=== PATIENT | female | born 1965 | race Caucasian/White ===

== ENCOUNTER 2019-04-22 09:43 | Emergency (ER) | payer OTHER, SELFPAY ==
[2019-04-22 09:44] VITALS: BP 132/76; PULSE 75; RESP 18; TEMP 36.4; O2SAT 99; BMI 25.0
--- NOTE | 2019-04-22 10:04 | CT_ITS ---
STUDY: CT ABDOMEN AND PELVIS WITHOUT CONTRAST REASON FOR EXAM: Female, 53 years old. LT FLANK PAIN, HX-KS, NO PREV SURG RADIATION DOSAGE (If Supplied By Facility): CTDIvol = ( 7.25 ) mGy, DLP = ( 362.42 ) mGycm TECHNIQUE: Transaxial images were obtained from the dome of the diaphragm to the symphysis pubis without oral contrast, and without intravenous contrast. Sagittal and coronal images were reconstructed. Individualized dose optimization techniques were used for this CT. COMPARISON: None. FINDINGS: The visualized lung bases are unremarkable. The visualized portions of the heart are within normal limits. Normal liver. Normal gallbladder and extrahepatic biliary system. There are multiple benign calcified granulomata of the spleen. Normal pancreas. Normal bilateral adrenal glands. There is a punctate stone in the right kidney region were 56. This no visualized hydronephrosis. There is mild left hydronephrosis. There is a cluster of punctate 3 or 4 stones in the lower pole of the left kidney each measuring approximately 2 to 3 mm. There is a mildly distended appearance of the left ureter. Within within the bladder just inside the ureterovesicular junction on the left there is a 3.6 mm stone. Normal visualized stomach. Normal small intestine. There is abundant stool in the colon from the cecum to the rectum. There is minimal diverticulosis without diverticulitis. The appendix is visualized and appears normal. Aorta is partially calcified. There is trace calcification of the takeoff of the renal arteries. Normal inferior vena cava. Normal retroperitoneum. There is a stone in the left side of the bladder. Normal visualized uterus. There is a small umbilical hernia containing fat. There is degenerative change in the lumbar spine especially L5-S1 where there is severe disc space narrowing spondylosis. There is mild facet arthropathy minimal neural foramina narrowing. CT/Abdomen/Pelvis without Cont IMPRESSION: Mild left hydronephrosis. There is a stone just inside the bladder on the left which is likely recently passed from the left kidney. Multiple small stones in the left kidney. Punctate stone right kidney Constipation. Electronically Signed: Roxy Logan MD at 10:44 EDT Tel , Service support ,
[2019-04-22 10:11] LABS: Absolute Lymphocyte Count 0.96 X10^3/uL (0.83-4.51); Absolute Neutrophil Count 10.7 X10^3/uL (2.0-7.7); Basophil# 0.05 X10^3/uL; Basophil% 0.4 % (0-1); Hematocrit 39.8 % (37-47); Hemoglobin 12.8 g/dL (12.0-15.0); Lymphocyte # 0.96 X10^3/ul (4.0); Lymphocyte % 7.8 % (19-41); Mean Corp Hgb Conc 32.2 g/dL (32-36); Mean Corpuscular Hgb 28.8 pg (27.0-32.0); Mean Corpuscular Volume 89.4 fL (81-99); Mean Platelet Vol. 9.4 fl (6.2-12.0); Monocyte# 0.44 X10^3/uL; Monocyte% 3.6 % (0-10); NRBC Flagged by Analyzer 0 % (0-5); Neutrophil # 10.74 X10^3/uL (2.7-7.7); Neutrophil % 87.9 % (47-70); Platelet Count 279 K/mm3 (150-450); RBC Distribution Width CV 12.5 % (11.6-14.6); RBC Distribution Width SD 41.1 fl (35.1-43.9); Red Blood Count 4.45 M/mm3 (4.2-5.4); White Blood Count 12.2 K/mm3 (4.4-11.0)
[2019-04-22] MEDS: 0.9% Normal Saline 1,000 ML 250 ML IV (10:12)
[2019-04-22] MEDS: Ketorolac 30 MG/ML Syringe IV (10:13)
[2019-04-22] MEDS: Ondansetron 4 MG/2 ML Vial IV (10:13)
[2019-04-22] MEDS: morphine 8 MG/ML Syringe IV (10:15)
--- NOTE | 2019-04-22 10:20 | ED.VIS.GEN ---
History of Present Illness Chief Complaint: Flank Pain Informant: Patient Onset: Today Maximum Severity: Mild Narrative: The patient presents complaining of left flank pain began this morning suddenly, she has history of kidney stones in distant past, no nausea vomiting urinary frequency, no history of UTI or kidney faction, no medications otherwise has been feeling well Past Medical History - Allergies and Home Meds Allergies/Adverse Reactions: Allergies No Known Allergies Allergy (Verified 04/22/19 09:46) Primary Care Physician: Care Physician,No Primary [Primary Care Provider] - Past Medical History: - Smoking Status: Former smoker Review of Systems ROS: - Prior kidney stones General: Denies: Chills, Fever, Sweats Eyes: Denies: Visual changes - bilaterally, Diplopia ENT: Denies: Rhinorrhea, Sore throat Cardiovascular: Denies: Chest pain, Palpitations Respiratory: Denies: Dyspnea, Cough, Dyspnea on exertion Gastrointestinal: Denies: Abdominal pain, Nausea, Vomiting, Diarrhea, Melena, Hematochezia Genitourinary: Reports: Dysuria, Frequency. Denies: Hematuria Musculoskeletal: Reports: Back pain. Denies: Extremity Pain Skin: Denies: Rash, Wounds Neurological: Denies: Headache, Weakness, Numbness Physical Exam Vital Signs/Narrative: Vital Signs Temp Pulse Resp BP Pulse Ox 04/22/19 09:44 97.6 F L 75 18 132/76 H 99 General: Well nourished, Well developed, No Acute Distress Head: Normocephalic, Atraumatic Eyes: Perrl, EOMI ENT: Moist mucous membranes, No rhinorrhea Neck: Supple, Nontender Cardiovascular: Regular rate, Regular rhythm, No murmurs Respiratory: No distress, CTA bilaterally, Chest nontender Abdomen: Soft, Nontender, Nondistended, Normal bowel sounds Back: Nontender, Normal Inspection, CVA tenderness Extremities: Nontender, No edema Skin: Normal color, No rash Neurological: Alert, Oriented x3, Cranial nerves II-XII grossly intact, Normal Strength, Normal Sensation Psychological: Normal affect, Normal Mood Diagnostic/Tx/Re-eval - Medical Decision [facility] Patient is in no distress vital signs unremarkable she does have some very vague pain to the left flank the abdomen soft nontender given all the above she undergo ED treatment protocol The patient screening labs are generally unremarkable microscopic hematuria, CT flank shows small kidney stone per the radiologist that seems to be moved into the bladder mild hydronephrosis on the left nonobstructing left stones in the kidney and reevaluation patient symptoms are resolved discussed all the above with her, she will be discharged on Naprosyn and Flomax and follow-up with urology and return for change in symptoms Home stable Final impression left flank pain related to left-sided obstructing kidney stone ED Disposition - Plan for ED Patient: Instructions: KIDNEY STONE, Passed, KIDNEY STONE w/ Colic Prescriptions: Tamsulosin HCl [Flomax] 0.4 mg PO DAILY #7 cap Prescription Printed Naproxen [Naprosyn] 500 mg PO BID PRN #20 tab Prescription Printed Hydrocodone Bitart/Apap 5-325 [[place] 5MG-325MG] 1 tab PO Q4H PRN PRN 2 Days #7 tab PRN Reason: Pain Prescription Printed Referrals: Care Physician,No Primary [Primary Care Provider] -
[2019-04-22 10:23] LABS: Anion Gap 4 (5-15); BUN 14 mg/dL (7-18); BUN/Creat Ratio 17.1 RATIO (10-20); Chloride 109 mmol/L (98-107); Creatinine, Serum 0.82 mg/dL (0.55-1.02); EST Glomerular Filtration Rate 77 mL/min (>60); Est Glom Filt Rate - Afr Amer 93 mL/min (>60); Estimated Creatinine Clearance 75.38 ml/min; Glucose 111 mg/dL (74-106); Sodium Level 140 mmol/L (136-145)
[2019-04-22 11:33] LABS: Mucous, Urine 0 SEEN /hpf (<or=2+)
[2019-04-22 11:37] LABS: Color, Urine Straw (Yellow); Glucose, Dipstick Normal (Normal); Ketone-Dipstick 5 mg/dl (Negative); Leukocyte Esterase-Dipstick 25 /ul (Negative); Nitrite-Dipstick Negative (Negative); Occult Blood-Urine 150 /ul (Negative); Protein-Dipstick Negative (Negative); Urine Bilirubin Dipstick Negative (Negative); Urine Clarity Clear (Clear); Urine Urobilinogen Normal (Normal)
[2019-04-22 11:48] LABS: Bacteria RARE /hpf (None Seen); Red Blood Cells-Urine 5-10 SEEN /hpf (0-5); Squamous Epithelial Cells - UA 0-5 SEEN /hpf (5-10); White Blood Cells 0-5 SEEN /hpf (0-5)
[2019-04-22 12:17] VITALS: BP 110/66; PULSE 75; RESP 17; O2SAT 97
== END 2019-04-22 12:19 | disposition home or self-care (01) ==
LOC: ED 10:55
PROVIDERS: Emergency Provider Emergency Medicine
DX: N13.2 Hydronephrosis with renal and ureteral calculous obstruction (principal); Z87.442 Personal history of urinary calculi; Z87.891 Personal history of nicotine dependence
CPT/HCPCS: 74176; 80048; 81001; 85025; 96361; 96374; 96375; 99283; J7030; J2405